=== PATIENT | male | born 1960 | race Caucasian/White ===

== ENCOUNTER → 2017-03-14 | Outpatient (CLI) | payer MEDICARE ==
[~2017-03-14] MED LIST: MOTRIN800 MG PO; VALIUM5 MG PO
== END | disposition home or self-care (01) ==
LOC: CDC 08:38
DX: R94.31 Abnormal electrocardiogram [ECG] [EKG] (principal); R10.32 Left lower quadrant pain; R19.4 Change in bowel habit
CPT/HCPCS: 93000

== ENCOUNTER 2017-05-02 18:47 | Emergency (ER) | payer OTHER ==
[~2017-05-02] VITALS: Ht 177.8 cm; Wt 91.8 kg
[2017-05-02] MEDS ORDERED: PERCOCET 5/31 TABLET PO (21:18)
[2017-05-02] MEDS ORDERED: VALIUM5 MG PO (21:18)
[2017-05-02 21:25] VITALS: BP 127/83
== END 2017-05-02 21:41 | disposition home or self-care (01) ==
LOC: EME 18:47
DX: S16.1XXA Strain of muscle, fascia and tendon at neck level, initial encounter (principal); R51 Headache; V49.60XA Unspecified car occupant injured in collision with unspecified motor vehicles in traffic accident, initial encounter; Y92.410 Unspecified street and highway as the place of occurrence of the external cause; F17.200 Nicotine dependence, unspecified, uncomplicated
CPT/HCPCS: 70450; 72125; 99281; 99284

== ENCOUNTER 2018-02-08 16:41 | Emergency (ER) | payer OTHER ==
[~2018-02-08] VITALS: Ht 177.8 cm; Wt 83.6 kg
[~2018-02-08 16:41] MED LIST changes: +PERCOCET 5/31 TABLET PO
[2018-02-08 17:45] LABS: HEMATOCRIT 45.4 % (38.0-50.0); HEMOGLOBIN 16.1 G/DL (12.5-16.6); MCH 30.6 PG (29.0-34.0); MCHC 35.5 G/DL (30.0-36.0); MCV 86.1 FL (86-99); PLATELET COUNT 244 K/uL (156-360); RBC DIS.WIDTH-CV 13.2 % (11.8-14.6); RBC DIS.WIDTH-SD 41.6 % (39-53); RED BLOOD COUNT 5.27 M/uL (4.00-5.50); WHITE BLOOD COUNT 7.8 K/uL (4.1-10.2)
[2018-02-08 17:54] LABS: ALBUMIN 4.8 g/dL (3.2-4.8); CHLORIDE 105 mEq/L (99-109); POTASSIUM 3.9 mEq/L (3.7-5.4); SODIUM 141 mEq/L (136-147)
[2018-02-08 17:55] LABS: AMYLASE 50 IU/L (1-118)
[2018-02-08 17:56] LABS: GLUCOSE 100 mg/dL (70-99)
[2018-02-08 17:57] LABS: TOTAL PROTEIN 7.7 g/dL (6.4-8.3)
[2018-02-08 17:58] LABS: TOTAL BILIRUBIN 0.7 mg/dL (0.0-1.0)
[2018-02-08 18:00] LABS: ALKALINE PHOSPHATASE 69 IU/L (3-129); CREATININE 0.9 mg/dL (0.6-1.3); GFR ESTIMATE (CALCULATED) > 59 mL/min/ (58.99-99999)
[2018-02-08 18:01] LABS: UREA NITROGEN (BUN) 14 mg/dL (9-23)
[2018-02-08 18:02] LABS: AST (GOT) 22 IU/L (2-34)
[2018-02-08 18:03] LABS: ALT (GPT) 16 IU/L (3-49)
[2018-02-08 18:04] LABS: LIPASE 34 U/L (1.0-51.0)
[2018-02-08] MEDS ORDERED: TRAMADOL HCL50 MG PO (20:21)
[2018-02-08] MEDS ORDERED: FLEXERIL10 MG PO (20:21)
[2018-02-08] MEDS ORDERED: MOTRIN600 MG PO (20:21)
[2018-02-08 20:27] LABS: APPEARANCE CLEAR ((CLEAR)); BILIRUBIN NEGATIVE; BLOOD NEGATIVE; COLOR YELLOW ((YELLOW)); GLUCOSE (STRIP) NEGATIVE; KETONES NEGATIVE; LEUKOCYTES NEGATIVE; NITRITE NEGATIVE; PROTEIN (STRIP) 30; UCUL ADDED? NO
[2018-02-08 20:28] LABS: SPECIFIC GRAVITY > 1.060 (1.000-1.030)
[2018-02-08 20:32] VITALS: BP 134/89
== END 2018-02-08 20:35 | disposition home or self-care (01) ==
LOC: EME 16:41
PROVIDERS: Physician Assistant
DX: K80.20 Calculus of gallbladder without cholecystitis without obstruction (principal); R07.89 Other chest pain; K76.0 Fatty (change of) liver, not elsewhere classified; F17.200 Nicotine dependence, unspecified, uncomplicated
CPT/HCPCS: 71046; 74177; 76705; 80053; 81003; 82150; 83690; 85027; 99281; 99285; J1885; J2405; J3010; J7030

== ENCOUNTER → 2018-06-07 | Outpatient (CLI) | payer MEDICARE ==
[~2018-06-07] MED LIST changes: +FLEXERIL10 MG PO; +MOTRIN600 MG PO; +TRAMADOL HCL50 MG PO
== END | disposition home or self-care (01) ==
LOC: CDC 10:35
DX: Z01.810 Encounter for preprocedural cardiovascular examination (principal); L05.01 Pilonidal cyst with abscess
CPT/HCPCS: 93000